=== PATIENT | male | born 1950 | race Caucasian/White ===

== ENCOUNTER → 2025-05-29 11:07 | Outpatient (REF) | payer OTHER, SELFPAY | LOC: HWRAD 11:07 | PROVIDERS: ATTENDING PHYSICIAN Internal Medicine | DX: N40.1 Benign prostatic hyperplasia with lower urinary tract symptoms (principal); R39.12 Poor urinary stream; N20.0 Calculus of kidney | CPT/HCPCS: 76770 ==